=== PATIENT | female | born 1960 | race Caucasian/White ===

== ENCOUNTER 2021-07-25 17:45 | Emergency (ER) | payer OTHER, SELFPAY ==
--- NOTE | 2021-07-25 17:55 | ED.URI ---
HPI - URI/Sore Throat General Chief Complaint: Upper Respiratory Infection Stated Complaint: Body Aches/Chills Time Seen by Provider: 07/25/21 17:55 Source: patient and RN notes reviewed History of Present Illness HPI Narrative: Patient is 61-year-old female who presents the urgent care with complaints of mild improving cough with body aches and chills. Patient states that her symptoms have all improved since starting very early on Sunday morning. Patient is just now approximately 48 hours and of symptoms. Patient denies of any recent fever, nausea, vomiting, shortness of breath. Patient has been using Tylenol and ibuprofen as well as taking her daily allergy medication. Patient states that she has been vaccinated and denies of any COVID exposures. No other acute complaints. No acute distress noted. Patient plan of care. Some parts of this dictation were generated by voice recognition software and may contain typographical and/or grammatical inaccuracies. Related Data Home Medications Medication Instructions Recorded Confirmed atorvastatin 20 mg PO DAILY 07/25/21 07/25/21 doxepin 10 mg PO DAILY 07/25/21 07/25/21 metformin 1,000 mg PO DAILY 07/25/21 07/25/21 montelukast 10 mg PO DAILY 07/25/21 07/25/21 Allergies Allergy/AdvReac Type Severity Reaction Status Date / Time Sulfa (Sulfonamide Allergy Hives Verified 07/25/21 18:18 Antibiotics) Review of Systems Review of Systems: CONSTITUTIONAL: Reports of fever and chills that have resolved EYES: Denies visual changes, redness, or discharge. ENT: Reports rhinorrhea and sinus congestion CARDIOVASCULAR: Denies chest pain, palpitations, or edema. RESPIRATORY: Reports a mild cough without dyspnea GASTROINTESTINAL: Denies abdominal pain, nausea, vomiting, or diarrhea. GENITOURINARY: Denies dysuria or hematuria. SKIN: Denies rash or itching. MUSCULOSKELETAL: Denies back pain, joint pain, or myalgia. NEUROLOGIC: Denies headache, numbness, or weakness. All other systems reviewed are negative, except as documented in HPI. PMFSH Comments At the time of my signature, I reviewed and agree with the nursing past medical, surgical, social, and family history. There is no relevant family history pertinent to the patient complaint. Exam Narrative: GENERAL: This is a well-nourished, well-developed patient, in no apparent distress. HEAD: normocephalic, atraumatic. Frontal sinus tenderness EYES: PERRL. Sclera clear/white. Vision is grossly intact. EARS: External ears normal, auditory canals clear and without drainage, TMs normal without perforation. Hearing grossly intact. NOSE: External nose normal with no obvious nasal discharge; mild bilateral erythemic nares with clear yellow rhinorrhea and notable nasal congestion THROAT: Mucous membranes moist, posterior pharynx clear. Moderate postnasal drainage NECK: Neck supple CARDIOVASCULAR: Regular rate and rhythm without murmurs, gallops, or rubs. RESPIRATORY: No cough noted on exam. Clear to auscultation. Breath sounds equal bilaterally. No wheezes, rales, or rhonchi. SKIN: warm, intact with no suspicious lesions or rash, good texture and turgor. NEURO: awake, alert, and oriented to person, place and time. There were no obvious focal neurologic abnormalities. EXTREMITIES: No clubbing, cyanosis, or edema. Course Course Level of Care: Express Care Visit Vital Signs Vital signs: Vital Signs Temperature 98.0 F 07/25/21 18:04 Pulse Rate 80 07/25/21 18:04 Respiratory Rate 20 07/25/21 18:04 Blood Pressure 155/76 H 07/25/21 18:04 Pulse Oximetry 100 07/25/21 18:04 Temperature 98.0 F 07/25/21 18:04 Pulse Rate 80 07/25/21 18:04 Respiratory Rate 20 07/25/21 18:04 Blood Pressure 155/76 H 07/25/21 18:04 Pulse Oximetry 100 07/25/21 18:04 Reviewed MDM - URI/Sore Throat MDM Narrative Medical decision making narrative: Educated the patient on rapid COVID testing. She is not a candidate for rapid COVID lady
[2021-07-25 18:04] VITALS: BP 155/76; PULSE 80; RESP 20; TEMP 36.7; O2SAT 100
[2021-07-27 21:18] LABS: SARS-CoV-2 RNA PCR Positive
== END 2021-07-25 18:44 | disposition home or self-care (01) ==
PROVIDERS: Emergency Provider Nurse Practitioner Family; PCP Internal Medicine
DX: U07.1 COVID-19 (principal); J32.9 Chronic sinusitis, unspecified
CPT/HCPCS: 99211; C9803; G0463; U0003; U0005